=== PATIENT | female | born 1995 | race Caucasian/White ===

== ENCOUNTER 2024-12-18 14:48 | Emergency (ER) | payer OTHER, SELFPAY ==
[2024-12-18 14:50] VITALS: BP 173/98
--- NOTE | 2024-12-18 15:12 | ED.GENMED ---
History of Present Illness
General
Chief Complaint: Rabies
Source: patient
Time Seen by Provider: 12/18/24 14:58
History of Present Illness
History of Present Illness:
29-year-old female presenting to the ER with request of her primary care provider after she was either bitten or scratched by a rescued cats 2 days ago, patient reports that it was a feral cat he that she rescued and is currently still at her house.
Patient was bitten or scratched on her right hand. No other injury sustained. She states the cat did vomit once but is otherwise acting reportedly normal. No other concerns at this time.
Past History
Past History
ED Past Medical History: None
ED Past Surgical History: None
Social History
Tobacco: Non-smoker
Alcohol: None
Drug: None
Personal:
Living: with family
Review of Systems
Review of Systems
All Other Systems: ROS reviewed and negative except as documented in HPI and ROS
Phy Exam
Physical Exam
Physical Exam:
GENERAL: Alert , in no apparent distress
EYE: conjunctiva clear
Head: Normocephalic atraumatic
NECK: Supple,
ENT: mmm.
LUNGS: no acute respiratory distress
NEUROLOGICAL: Alert and oriented
SKIN: Warm and dry, 2 very small puncture wounds/scratches to the base of the right thumb
MUSCULOSKELETAL: well perfused.
PSYCH: Normal and appropriate interaction.
Scores
Heart Failure Risk
Heart Failure Risk Score: Not Applicable
Heart Score for Chest Pain Patients
STEMI patient?: Not applicable
Withdrawal Assessment of Alcohol
Withdrawal Assessment Completed?: Not applicable
Course
Orders/Labs/Results
Orders:
Orders
12/18/24 15:20
Rabies Immune Globulin/Pf [HyperRAB] 1,526 unit IM NOW STA
12/18/24 15:30
Rabies Vaccine (Pcec)/Pf [Rabavert Rabies Vacc W-Diluent] 2.5 unit IM .ONCE ONE
Vital Signs
Initial and Last Documented VS:
Initial Vital Signs
Temp Pulse Resp BP Pulse Ox
98.5 F 91 18 173/98 100
12/18/24 14:50 12/18/24 14:50 12/18/24 14:50 12/18/24 14:50 12/18/24 14:50
Last Documented Vital Signs
Temp Pulse Resp BP Pulse Ox
98.5 F 91 18 173/98 100
12/18/24 14:50 12/18/24 14:50 12/18/24 14:50 12/18/24 14:50 12/18/24 14:50
MDM/Problems Addressed
Differential Diagnosis Includes:
Cat scratch, cat bite, potential for rabies although minimal
MDM/Problems Addressed:
29-year-old female presenting to the ER for evaluation at the request of her primary care provider due to concern for possible rabies exposure. Patient notes that she still has the cat in her possession and is currently quarantining the cat for
observation. Patient ultimately did not feel comfortable with continued observation and is requesting rabies prophylaxis. I did advise she continue to keep the cat quarantined and that the cat exhibits any symptoms would need to be brought to the
[employer] for further evaluation. Patient expressed understanding. She will return to [facility] for remaining vaccine series. Stable for discharge.
*Pulse Oximetry
Patient hypoxic: no
*Critical Care Note
Total Time (30-74mins, 75-104mins- exclusive of procedures): Not Applicable
ED Attending Note
-
Portions of this chart may have been created with voice recognition software.� Occasional wrong word or��sound alike� substitutions may have occurred due to the inherent limitations of voice recognition software.
Discharge Plan
Departure
Patient Disposition: Home (Routine Discharge)
Date of Disposition: 12/18/24
Time of Disposition: 15:12
Patient with high blood pressure during this ER visit?: Yes
Discharge Problem:
Encounter for immunization
Instructions: Rabies
Stand Alone Forms: Rabies Vaccine Post Exp Dosing
Interventions
Interventions:
*Risk Screen - Suicide Last Done: 12/18/24 14:50
*General Assessment Last Done: 12/18/24 14:50
*Neglect/Abuse Screening Last Done: 12/18/24 14:50
ED- Fall Risk Assessment Last Done: 12/18/24 15:16
*ED COVID-19 Vaccine History Last Done: 12/18/24 15:16
Discharge Date and Time
Print Language: CZECH
[2024-12-18 15:16] VITALS: BMI 28.9
[2024-12-18] MEDS: RABAVERT RABIES VACC W-DILUENT 2.5 UNIT IM (16:24)
[2024-12-18] MEDS: HyperRAB 1526 UNIT IM (16:30)
== END 2024-12-18 16:45 | disposition home or self-care (01) ==
LOC: EMR 14:48
PROVIDERS: EMERGENCY PHYSICIAN Emergency Medicine; FAMILY PHYSICIAN Internal Medicine
DX: S61.031A Puncture wound without foreign body of right thumb without damage to nail, initial encounter (principal); W55.03XA Scratched by cat, initial encounter; Z29.14 Encounter for prophylactic rabies immune globulin; Z23 Encounter for immunization
CPT/HCPCS: 96372; 90471; 99284; 90375; 90675

== ENCOUNTER 2025-01-01 10:54 | Outpatient (RCR) | payer OTHER, SELFPAY ==
[2024-12-20 15:24] VITALS: BP 142/67
[2024-12-20] MEDS: RABAVERT RABIES VACC W-DILUENT 2.5 UNIT IM (15:33)
[2024-12-25 10:55] VITALS: BP 123/75
[2024-12-25] MEDS: RABAVERT RABIES VACC W-DILUENT 2.5 UNIT IM (11:03)
[2025-01-01 10:59] VITALS: BP 115/63
[2025-01-01] MEDS: RABAVERT RABIES VACC W-DILUENT 2.5 UNIT IM (11:07)
== END 2025-01-02 08:42 | disposition home or self-care (01) ==
LOC: OID 10:54
PROVIDERS: ATTENDING PHYSICIAN Physician Assistant Medical; FAMILY PHYSICIAN Internal Medicine
DX: Z20.3 Contact with and (suspected) exposure to rabies (principal); Z23 Encounter for immunization
CPT/HCPCS: 90471; 90675

== ENCOUNTER 2025-09-30 07:47 | Emergency (ER) | payer OTHER, SELFPAY ==
[2025-09-30] VITALS (25 sets, daily range): BP systolic 100–156; BP diastolic 47–90; PULSE 74–117; BMI 28.0
[2025-09-30] MEDS: NSS 1000 IV (08:49)
--- NOTE | 2025-09-30 08:49 | ED.GENMED ---
History of Present Illness
<Dayron Guo MD - Last Filed: 09/30/25 08:54>
General
Chief Complaint: Heart Rate Problem
Source: patient
Exam Limitations: none
Time Seen by Provider: 09/30/25 08:26
Nursing documentation reviewed up to this point in time: agreed with
History of Present Illness
History of Present Illness:
Patient who recently returned from overseas trip in [place], presents to ED secondary to intermittent episode of chest palpitations with dizziness, accompanied by multiple episodes of nonbloody diarrhea. Patient reports minimal abdominal cramps
sensation prior to diarrhea. Denies fever or chills. Denies coughing. Denies vomiting, although she has experienced multiple episodes of intermittent nausea since returning from [place]. Denies loss of appetite. Patient states that she has been
eating normally. No other family members are experiencing similar symptoms. Denies previous history of similar symptoms. Patient does state that she does have anxiety and experiences palpitations now and then, but states that her symptoms today
are different. At the time evaluation ED, however, patient states that her symptoms have resolved completely. At home, however her Apple Watch did record heart rate around 130 bpm. In addition, patient states that she has been experiencing
intermittent episodes of inability to take deep breath in, which started prior to trip overseas.
Past History
<Dayron Guo MD - Last Filed: 09/30/25 08:54>
Past History
ED Past Medical History: None
ED Past Surgical History: None
Social History
Tobacco: Non-smoker
Alcohol: None
Drug: None
Personal:
Living: with family
Review of Systems
<Dayron Guo MD - Last Filed: 09/30/25 08:54>
Review of Systems
Allergies reviewed?: Yes
All Other Systems: ROS reviewed and negative except as documented in HPI and ROS
Constitutional: Reports no symptoms; Denies fever
EENT: Reports no symptoms
Respiratory: Reports trouble breathing; Denies cough
Cardiac: Reports palpitations; Denies chest pain, diaphoresis or syncope
ABD/GI: Reports abdominal pain, nausea and diarrhea
: Reports no symptoms
Musculoskeletal: Reports no symptoms
Skin: Reports no symptoms
Neurological: Reports dizzy
Phy Exam
<Dayron Guo MD - Last Filed: 09/30/25 08:54>
Physical Exam
Physical Exam:
Physical Exam
General: no apparent distress, not acutely ill. afebrile
Head: nc/at. eomi
Neck: supple. no meningeal signs. no jvd
Heart: s1/s2 regular rate and rhythm. no murmur
Lungs: no acute respiratory distress. clear bilaterally
Abdomen: normal bowel sounds. not tender. no distention
Neuro: alert and oriented x 3. no focal neurological deficits
Skin: no rash
Psychiatric: well kept. interactive and cooperative
Extremities: no edema. no calf tenderness.
Course
<Dayron Guo MD - Last Filed: 09/30/25 08:54>
Orders/Labs/Results
Orders:
Orders
09/30/25 07:58
EKG [Electrocardiogram (*1)] Urgent
Reason for Study: Chest Pain
09/30/25 07:59
EKG- Treatment ONCE
09/30/25 08:39
Orthostatic VS- Treatment ONCE
Complete Blood Count/With Diff Urgent
Comprehensive Metabolic Panel Urgent
D-Dimer Urgent
HCG, Serum Qualitative Screen Urgent
Comment: ADD ON
Magnesium Urgent
TSH Reflex To Free T4 Urgent
0.9% Sodium Chloride 1000 ml [Nss] 1,000 ml IV BOLUS
09/30/25 10:55
0.9% Sodium Chloride 500 ml [Nss] 500 ml IV BOLUS
09/30/25 13:22
CT Chest PE Study Urgent
Comment:
Reason For Exam: palpitations/sob
09/30/25 13:43
Add On- LAB Urgent
Tests Added?: serum b-hcg, qualitative
09/30/25 14:08
Stool Culture Urgent
KARLY Source: Feces/Stool
Specimen Description:
Date Specimen was Collected: 09/30/25
Time Specimen was Collected: 14:06
09/30/25 16:21
0.9% Sodium Chloride 500 ml [Nss] 500 ml IV BOLUS
Abnormal Lab Results
09/30/25
08:39
MPV 10.5 H fL
(7.4-10.4)
Lymphocytes % 19.3 L %
(20.5-51.1)
D-Dimer 0.55 H ug/mlFEU
(0.00-0.50)
Glucose 106 H mg/dl
(70-99)
AST 45 H U/L
(14-36)
ALT 67 H U/L
(0-35)
09/30/25 08:39
09/30/25 08:39
Vital Signs
Initial and Last Documented VS:
Initial Vital Signs
Temp Pulse Resp BP Pulse Ox
98.5 F 125 16 156/90 100
09/30/25 07:55 09/30/25 07:55 09/30/25 07:55 09/30/25 07:55 09/30/25 07:55
Last Documented Vital Signs
Temp Pulse Resp BP Pulse Ox
99.1 F 63 16 119/50 99
09/30/25 08:30 09/30/25 18:00 09/30/25 18:00 09/30/25 18:00 09/30/25 18:00
<Ngozi Pedersen MD - Last Filed: 09/30/25 19:17>
Orders/Labs/Results
Orders:
Orders
09/30/25 07:58
EKG [Electrocardiogram (*1)] Urgent
Reason for Study: Chest Pain
09/30/25 07:59
EKG- Treatment ONCE
09/30/25 08:39
Orthostatic VS- Treatment ONCE
Complete Blood Count/With Diff Urgent
Comprehensive Metabolic Panel Urgent
D-Dimer Urgent
HCG, Serum Qualitative Screen Urgent
Comment: ADD ON
Magnesium Urgent
TSH Reflex To Free T4 Urgent
0.9% Sodium Chloride 1000 ml [Nss] 1,000 ml IV BOLUS
09/30/25 10:55
0.9% Sodium Chloride 500 ml [Nss] 500 ml IV BOLUS
09/30/25 13:22
CT Chest PE Study Urgent
Comment:
Reason For Exam: palpitations/sob
09/30/25 13:43
Add On- LAB Urgent
Tests Added?: serum b-hcg, qualitative
09/30/25 14:08
Stool Culture Urgent
KARLY Source: Feces/Stool
Specimen Description:
Date Specimen was Collected: 09/30/25
Time Specimen was Collected: 14:06
09/30/25 16:21
0.9% Sodium Chloride 500 ml [Nss] 500 ml IV BOLUS
Abnormal Lab Results
09/30/25
08:39
MPV 10.5 H fL
(7.4-10.4)
Lymphocytes % 19.3 L %
(20.5-51.1)
D-Dimer 0.55 H ug/mlFEU
(0.00-0.50)
Glucose 106 H mg/dl
(70-99)
AST 45 H U/L
(14-36)
ALT 67 H U/L
(0-35)
09/30/25 08:39
09/30/25 08:39
Vital Signs
Initial and Last Documented VS:
Initial Vital Signs
Temp Pulse Resp BP Pulse Ox
98.5 F 125 16 156/90 100
09/30/25 07:55 09/30/25 07:55 09/30/25 07:55 09/30/25 07:55 09/30/25 07:55
Last Documented Vital Signs
Temp Pulse Resp BP Pulse Ox
99.1 F 63 16 119/50 99
09/30/25 08:30 09/30/25 18:00 09/30/25 18:00 09/30/25 18:00 09/30/25 18:00
<Dayron Guo MD - Last Filed: 09/30/25 08:54>
*Pulse Oximetry
SaO2: 100
Oxygen Mode of Delivery: Room air
*EKG
Interpreted by ED Provider?: Yes
EKG Intrepretation Date: 09/30/25
Heart Rate: 87
Rate: normal
Rhythm: sinus and sinus arrhythmia
<Ngozi Pedersen MD - Last Filed: 09/30/25 19:17>
*Pulse Oximetry
Patient hypoxic: no
*Critical Care Note
Total Time (30-74mins, 75-104mins- exclusive of procedures): Not Applicable
<Ngozi Pedersen MD - Last Filed: 09/30/25 19:17>
Update Note
Update Note:
7:12 PM patient's CAT scan of her chest shows no pulmonary embolism. I went over results with the patient. Patient states she feels well. Patient looks well. Patient did give stool specimen while she was here. Patient's heart rate is currently
in the 70s.
ED Attending Note
<Dayron Guo MD - Last Filed: 09/30/25 08:54>
-
Portions of this chart may have been created with voice recognition software.� Occasional wrong word or��sound alike� substitutions may have occurred due to the inherent limitations of voice recognition software.
Discharge Plan
Departure
Patient Disposition: Home (Routine Discharge)
Date of Disposition: 09/30/25
Time of Disposition: 19:11
Patient with high blood pressure during this ER visit?: No
Condition: Good
Covid-19: Not Applicable
Discharge Problem:
Acute diarrhea
Instructions: Acute Diarrhea
Prescriptions:
No Action
sertraline [Zoloft] 25 mg Tablet
25 mg PO HS
RabAvert (PF) 2.5 unit Suspension For Reconstitution
1 ml IM .ASDIRECTED
Referrals:
Brendon Posey MD [Family Provider, Internal Medicine]
Interventions
Interventions:
*Risk Screen - Suicide Last Done: 09/30/25 07:55
*Neglect/Abuse Screening Last Done: 09/30/25 07:55
ED- Cardiac Assessment Last Done: 09/30/25 08:31
ED- Pulmonary Assessment Last Done: 09/30/25 08:31
Discharge Date and Time
Print Language: MACEDONIAN
[2025-09-30 08:55] LABS: Hematocrit 45.9 % (37.0-47.0); Hemoglobin 15.2 g/dL (12.0-16.0); Mean Corp Hgb Conc. 33.1 g/dL (33.0-37.0); Mean Corpuscular Volume 87.3 fL (81.0-99.0); Nucleated Red Blood Cells % 0 %; Platelet Count 250 10^3/uL (130-400); Red Cell Dist. Width 12.4 % (11.5-14.5)
[2025-09-30 09:07] LABS: ALT (SGPT) 67 U/L (0-35); AST (SGOT) 45 U/L (14-36); Albumin 4.7 g/dl (3.5-5.0); Alkaline Phosphatase 98 U/L (38-126); Blood Urea Nitrogen 13 mg/dl (7-17); Calcium 9.5 mg/dl (8.4-10.2); Carbon Dioxide 26 mmol/L (22-30); Chloride 105 mmol/L (98-107); Estimated Creatinine Clearance 115 ml/min; Glucose 106 mg/dl (70-99); Magnesium 1.9 mg/dl (1.6-2.3); Potassium 3.8 mmol/L (3.5-5.1); Sodium 139 mmol/L (135-145); Total Protein 7.6 g/dl (6.3-8.2); eGFR > 60.00
[2025-09-30 09:36] LABS: D-Dimer 0.55 ug/mlFEU (0.00-0.50)
[2025-09-30] MEDS: NSS 500 IV ×2 (10:59→16:57)
[2025-09-30 14:44] LABS: HCG, Serum Qualitative Screen Negative
== END 2025-09-30 19:27 | disposition home or self-care (01) ==
LOC: EMR 07:47
PROVIDERS: EMERGENCY PHYSICIAN Emergency Medicine; FAMILY PHYSICIAN Internal Medicine
DX: R19.7 Diarrhea, unspecified (principal); R00.2 Palpitations; R42 Dizziness and giddiness; F41.9 Anxiety disorder, unspecified
CPT/HCPCS: 96360; 96361; 99284; 71275; 80053; 83735; 84443; 84703; 85025; 85379; 87045; 87046; 87427; 93005; Q9967